=== PATIENT | male | born 2000 | race Caucasian/White ===

== ENCOUNTER 2020-10-09 18:16 | Emergency (ER) | payer BC, SELFPAY ==
[2020-10-09 18:17] VITALS: BP 131/90; PULSE 80; RESP 18; TEMP 36.9; O2SAT 99; BMI 24.6
--- NOTE | 2020-10-09 18:57 | HMH.EDUTC ---
[facility] Disposition Clinical Impression: Viral upper respiratory illness Disposition: Home, Self-Care Condition on Discharge: Good Instructions: Sore Throat, DI for COVID-19 (Suspected or Confirmed ), Coronavirus Disease 2019, Preventing the Spread of Coronavirus Discharge Instructions Additional Instructions: *Monitor Temp, Over the counter Motrin or Tylenol as directed/as needed Tylenol every 4 hours and Motrin every 6 hours (as long as your family doctor has told you that you can take it) for fever or pain. and straight to ER if unable to lower temp less than 101.0 after medication given *Warm salt water gargles may help to soothe the throat *Throat Lozenges *Warm fluids like tea with honey may help to soothe the throat *Sleep elevated *Humidifier/Vaporizer Your throat swab was sent for culture. Those results are typically sent to your primary care. Be sure to follow up in 2-3 days with your family doctor/primary care physician if no improvement so they can review those result and treat if necessary. If you don?t have a primary care doctor, I recommend you get one but in the mean time, you will have to return to a walk in clinic Follow up IMMEDIATELY for new or worsening symptoms or no Noticeable improvement over the next 48-72 hours. 911 for difficulty breathing or swallowing You were tested for today for COVID19 your test result should be back in the next 24-48 hours, you may call to the [facility] to see if your test results are back in the next 48 hours [phone] [facility] hours are 9am-9pm You was given a handout with instructions for Self Quarantine and Self isolation for while you wait on test results and what to do if they are positive If you are positive the Health Dept will be contacting you also Referrals: PCP,No [Primary Care Provider] - As needed Forms: Work/School Release Time of Disposition: 19:12 Medical Decision Making - Uvaldo Inquiry Pt receiving controlled substance: No Uvaldo was queried for this patient: No Vital Signs: 10/09/20 18:17 Temperature 98.4 F Temperature Source Oral Pulse Rate [Right] 80 Respiratory Rate 18 Blood Pressure [Right Arm] 131/90 Blood Pressure Mean [Right Arm] 103 02 Sat by Pulse Oximetry 99 Oxygen Delivery Method Room Air - Lab Data Lab Results 10/09/20 18:57: Strep Scn Rapid Clinic Negative Orders (Tests/Meds): ORDERS Category Date Time Status Covid-19 Nasal PCR ([facility]) Routine Lab 10/09/20 18:24 Received Strep Screen Confirmation Stat Micro 10/09/20 18:57 Received [facility] UTC HPI - General Stated complaint: covid test Time Seen by Provider: 10/09/20 18:57 Mode of Arrival: Family Vehicle Source of Information: Patient Limitations: No Limitations Description of Symptoms (Recalled from Triage Doc. by RN): PT C/O HEADACHE, SORE THROAT AND GENERAL MALAISE. PT REPORTS PT WANTS A COVID TEST FOR WORK. HEENT Symptoms (Recalled from RN notes): Yes Resp Symptoms (Recalled from RN notes): No Skin Symptoms (Recalled from RN notes): No MS Symptoms (Recalled from RN notes): No Functional Status (Recalled from RN notes): NA - History of Present Illness Provider Complaint: Patient states that he has been having headache, sore throat and over all not feeling well for a couple of days States that he was worried that he may have COVID or strep throat States that he wanted to get tested Unsure if he has been around anyone or not that may be positive - Related Data Allergies Allergy/AdvReac Type Severity Reaction Status Date / Time No Known Allergies Allergy Verified 03/12/19 12:01 - Worker's Comp Is this a Worker's Comp case?: No Is this an H Worker's Comp?: No Is this a [place] Worker's Comp?: No [facility] History - Hepatitis A Screen Drug use history?: No High risk sexual behaviors?: No History of sexually transmitted infection?: No Currently employed?: No Childcare worker?: No Do you have indoor plumbing?: Yes Do you have electricity?: Yes Attestation
[2020-10-09 19:09] LABS: UTC Strep Screen (Rapid) Negative (Negative)
[2020-10-09 19:30] VITALS: BP 132/71; PULSE 81; RESP 18; TEMP 36.8; O2SAT 99
== END 2020-10-09 19:16 | disposition home or self-care (01) ==
LOC: UTC 18:23 → ER 18:52 → UTC 18:52
PROVIDERS: Emergency Provider Nurse Practitioner
DX: Z20.822 Contact with and (suspected) exposure to COVID-19 (principal); J06.9 Acute upper respiratory infection, unspecified
CPT/HCPCS: 87880; 99202; G0463; U0003

== ENCOUNTER 2020-12-23 13:43 | Emergency (ER) | payer BC, OTHER, SELFPAY ==
--- NOTE | 2020-12-23 13:39 | ECG_ITS ---
APPROVED REPORT Exam: Resting ECG HR:66 bpm ECG Measurements Heart Rate 66 AXES MO 126 P 36 QRSd 90 QRS 93 QT 412 T 65 QTc 431 Conclusion Normal sinus rhythm Rightward axis Borderline ECG Electronically signed by : Charlie Tabares, 12/23/2020 17:42:26
[2020-12-23 13:43] VITALS: BP 126/73; PULSE 62; RESP 16; TEMP 36.7; O2SAT 99; BMI 24.2
[2020-12-23 14:00] VITALS: BP 118/72; PULSE 65; RESP 11; O2SAT 98
--- NOTE | 2020-12-23 14:00 | XR_ITS ---
PROCEDURE: XR CHEST PORTABLE CLINICAL HISTORY: CHEST PAIN, SOA COMPARISON: No exams were available for comparison FINDINGS: The cardiomediastinal silhouette and pulmonary vascularity are within normal limits. The lungs are clear without infiltrates, suspicious nodules, or pleural effusions. There is mild thoracic curvature convex left IMPRESSION: No acute findings. Dictated by: Rehan Beaulieu MD 12/23/2020 14:29 Rehan Beaulieu MD in [place] 12/23/2020 14:29
[2020-12-23 14:07] LABS: Chloride 102 mmol/L (98-107); Sodium 141 mmol/L (136-145)
[2020-12-23 14:08] LABS: Potassium 3.9 mmoL/L (3.5-5.1)
[2020-12-23 14:10] LABS: Blood Urea Nitrogen 8 mg/dl (9-20); Creatinine Clearance Estimated 124 mL/min (50-200); Estimated Glomerular Filt Rate 106 ml/min (>60); GFR (African American) 128 ML/MIN (>60)
[2020-12-23 14:11] LABS: Anion Gap 11.9 mEq/L (5-15); Calcium 9.7 mg/dl (8.4-10.2); Carbon Dioxide 31 mmol/L (22.0-30.0); Glucose 100 mg/dl (74-100)
[2020-12-23 14:21] LABS: Basophils # 0.1 K/mm3 (0-0.2); Basophils % 1.2 % (0.1-2.0); Eosinophils # 0.1 K/mm3 (0.0-0.4); Eosinophils % 1.7 % (0.1-12.0); Hematocrit 43.2 % (42.0-52.0); Hemoglobin 15.6 g/dL (14.1-18.0); Lymphocytes % 31.5 % (10-50); Mean Corpuscular HGB Conc 36.1 g/dL (31.8-35.4); Mean Corpuscular Hemoglobin 31.4 pg (27.0-31.2); Mean Corpuscular Volume 86.9 fl (80-94); Mean Platelet Volume 7.2 fl (7.4-10.4); Monocytes # 0.4 K/mm3 (0.1-1.0); Monocytes % 5.5 % (1.7-9.3); Neutrophils # 3.8 K/mm3 (1.8-7.8); Platelet Count 277 K/mm3 (142-424); Red Blood Count 4.97 M/mm3 (4.60-6.20); Red Cell Distribution Width 12.8 % (11.5-17.5); White Blood Count 6.4 K/mm3 (4.8-10.8)
[2020-12-23 14:26] LABS: Troponin I < 0.01 ng/ml (0.00-0.034)
--- NOTE | 2020-12-23 14:27 | HMH.EDGENADL ---
ED Disposition Clinical Impression: Chest wall pain Disposition: Home, Self-Care Condition on Discharge: Good Instructions: DI for Atypical Chest Pain Additional Instructions: [id number] ibuprofen for pain, 600 mg every 6-8 hours. Additional instructions for CHEST PAIN: See your physician as soon as possible for further evaluation. Return immediately if worsening chest pain, vomiting, shortness of breath, fever, coughing of blood. Prescriptions: Ibuprofen [Ibuprofen 600mg Tab] 600 mg PO Q6HP PRN #20 tab PRN Reason: Moderate Pain Referrals: Natalee Rhodes [Primary Care Provider] - - Critical Care Critical Care Time: No Attestation: On 12/23/20, the high probability of a clinically significant, sudden or life threatening deterioration of the following system(s) required my full and direct attention, intervention and personal management. The time I documented below is in addition to time spent performing reported procedures but includes the following listed in this critical care notation. Medical Decision Making - Uvaldo Inquiry Pt receiving controlled substance: No Vital Signs: 12/23/20 13:43 12/23/20 14:00 12/23/20 14:30 Temperature 98.1 F Temperature Source Oral Pulse Rate 65 61 Pulse Rate [Right] 62 Respiratory Rate 16 11 L 18 Blood Pressure 118/72 126/77 Blood Pressure [Right Arm] 126/73 Blood Pressure Mean 83 90 Blood Pressure Mean [Right Arm] 90 02 Sat by Pulse Oximetry 99 98 97 Oxygen Delivery Method Room Air - Lab Data Lab Results 12/23/20 13:47: WBC 6.4, RBC 4.97, Hgb 15.6, Hct 43.2, MCV 86.9, MCH 31.4 H, MCHC 36.1 H, RDW 12.8, Plt Count 277, MPV 7.2 L, Neut % (Auto) 60.0, Lymph % (Auto) 31.5, [place] % (Auto) 5.5, Eos % (Auto) 1.7, Baso % (Auto) 1.2, Neut # (Auto) 3.8, Lymph # (Auto) 2.0, [place] # (Auto) 0.4, Eos # (Auto) 0.1, Baso # (Auto) 0.1 12/23/20 13:47: Sodium 141, Potassium 3.9, Chloride 102, Carbon Dioxide 31 H, Anion Gap 11.9, BUN 8 L, Creatinine 0.90, Estimated Creat Clear 124, Estimated GFR 106, Est GFR ( Amer) 128, Glucose 100, Calcium 9.7, Troponin I < 0.01 Result diagrams: 12/23/20 13:47 12/23/20 13:47 Orders (Tests/Meds): ED MEDICATIONS Generic Name Dose Route Start Last Admin Trade Name Freq PRN Reason Stop Dose Admin Ketorolac Tromethamine 30 mg 12/23/20 14:38 Ketorolac 30mg/Ml Vial IV 12/23/20 14:39 ONCE ONE ORDERS Category Date Time Status Troponin I Q3H Lab 12/23/20 17:00 Ordered Troponin I Q3H Lab 12/23/20 20:00 Ordered - Radiology Data #1 Image(s): Chest Image Reviewed: Yes I reviewed the patient's radiology image, Yes I have reviewed radiologist's interpretation PROCEDURE: XR CHEST PORTABLE CLINICAL HISTORY: CHEST PAIN, SOA COMPARISON: No exams were available for comparison FINDINGS: The cardiomediastinal silhouette and pulmonary vascularity are within normal limits. The lungs are clear without infiltrates, suspicious nodules, or pleural effusions. There is mild thoracic curvature convex left IMPRESSION: No acute findings. Dictated by: Rehan Beaulieu MD 12/23/2020 14:29 Rehan Beaulieu MD in [place] 12/23/2020 14:29 - ECG Data Tracing #1 EKG interpreted by Mikey Suero MD: Rhythm: sinus Rate: 66 [place]: Rightward Ectopy: none Conduction: normal ST Segment Changes: none T Wave Changes: none Q Waves: none No evidence of acute ischemia or injury Medical Decision Narrative: PULMONARY EMBOLISM RULE-OUT CRITERIA: 1. Age > 49? No 2. Pulse greater than 99/min? No 3. Room air pulse ox <95%? No 4. Hemoptysis? No 5. On estrogen? No 6. Prior diagnosis of DVT or PE? No 7. Surgery or trauma requiring endotracheal intubation or hospitalization in past 4 wks? No 8. Unilateral leg swelling? No The patient is low risk and the PERC score is 0, indicating no further workup for pulmonary embolism is necessary. General Adult HPI - General Chief complaint
[2020-12-23 14:30] VITALS: BP 126/77; PULSE 61; RESP 18; O2SAT 97
[2020-12-23 14:57] VITALS: BP 126/77; PULSE 64; RESP 16; TEMP 36.7; O2SAT 98
== END 2020-12-23 14:57 | disposition home or self-care (01) ==
PROVIDERS: Emergency Provider Emergency Medicine; PCP Family Medicine
DX: R07.89 Other chest pain (principal); R42 Dizziness and giddiness; F17.290 Nicotine dependence, other tobacco product, uncomplicated
CPT/HCPCS: 71045; 80048; 84484; 85025; 93005; 96374; 99283

== ENCOUNTER 2021-07-08 13:04 | Emergency (ER) | payer BC, OTHER, SELFPAY ==
[2021-07-08 16:07] VITALS: BP 134/89; PULSE 97; RESP 18; TEMP 37.3; O2SAT 98; BMI 24.3
[2021-07-08 16:34] LABS: UTC Influenza A Antigen Negative (Negative)
[2021-07-08 16:35] LABS: UTC Influenza B Antigen Negative (Negative)
--- NOTE | 2021-07-08 16:41 | HMH.EDUTC ---
[facility] Disposition Clinical Impression: Viral syndrome, Exposure to COVID-19 virus Pharyngitis Qualifiers: Pharyngitis/tonsillitis etiology: unspecified etiology Qualified Code(s): J02.9 - Acute pharyngitis, unspecified Disposition: Home, Self-Care Condition on Discharge: Good Instructions: DI for Viral Syndrome, DI for COVID-19 (Suspected or Confirmed ), Preventing the Spread of Coronavirus Discharge Instructions Additional Instructions: Drink plenty of fluids. Take tylenol or ibuprofen for pain or fever. Take the medications as directed. Follow up with your regular doctor. GO TO THE ER FOR ANY WORSENING SYMPTOMS Quarantine until you know the results of your covid-19 test. Notify your school or workplace of your results and follow their instructions regarding return to work/school. Prescriptions: Brompheniramine/Pseudoephed/Dm [Bromfed Dm Cough Syrup] 5 ml PO Q6HP PRN #240 ml PRN Reason: Cough Transmission Status: Received by [id number] Azithromycin [Z-See 250mg Tab*] 250 mg PO UD DOSE PK #6 tab Transmission Status: Received by [id number] Referrals: Provider,Referral, [Referring] - Forms: Work/School Release Time of Disposition: 16:55 Medical Decision Making - Medical Records Medical records reviewed: No: I reviewed the patient's medical records. - [place] Inquiry Pt receiving controlled substance: No Vital Signs: 07/08/21 16:07 07/08/21 16:56 Temperature 99.1 F 99.1 F Temperature Source Oral Pulse Rate 97 H Pulse Rate [Left] 97 H Respiratory Rate 18 18 Blood Pressure 134/89 Blood Pressure [Right Arm] 134/89 Blood Pressure Mean [Right Arm] 104 02 Sat by Pulse Oximetry 98 - Lab Data Lab results reviewed: Yes: I reviewed the patient's lab results. Lab Results 07/08/21 16:12: Group A Strep Rapid Negative 07/08/21 16:12: Influenza Type A Ag Negative, Influenza Type B Ag Negative Orders (Tests/Meds): ORDERS Category Date Time Status Strep Screen Confirmation Stat Micro 07/08/21 16:12 Received [facility] HPI - General Stated complaint: chills, diarrhea, dizziness, [place] Time Seen by Provider: 07/08/21 16:43 Mode of Arrival: Ambulatory Source of Information: Patient Limitations: No Limitations Description of Symptoms (Recalled from Triage Doc. by RN): pt c/o sweats/chills, nausea and a sore throat since last night. HEENT Symptoms (Recalled from RN notes): Yes Resp Symptoms (Recalled from RN notes): No Skin Symptoms (Recalled from RN notes): No MS Symptoms (Recalled from RN notes): No Functional Status (Recalled from RN notes): wnl - History of Present Illness Provider Complaint: He states that for the past 3 days he has had chest congestion, sore throat, sinus congestion and body aches. HE denies any fever, but he has been having chills. - Related Data Previous Rx's Medication Instructions Recorded Ibuprofen [Ibuprofen 600mg Tab] 600 mg PO Q6HP PRN #20 tab 12/23/20 Azithromycin [Z-See 250mg Tab*] 250 mg PO UD DOSE PK #6 tab 07/08/21 Brompheniramine/Pseudoephed/Dm 5 ml PO Q6HP PRN #240 ml 07/08/21 [Bromfed Dm Cough Syrup] Allergies Allergy/AdvReac Type Severity Reaction Status Date / Time No Known Allergies Allergy Verified 03/12/19 12:01 - Worker's Comp Is this a Worker's Comp case?: No [facility] History - Hepatitis A Screen Drug use history?: No High risk sexual behaviors?: No History of sexually transmitted infection?: No Currently employed?: 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 I have reviewed the patient's past medical history: Yes ROS Obtained: Yes All systems reviewed & no additional complaints - Constitutional Constitutional: Reports as per HPI - Eyes Eyes: Denies eye discharge - ENT Ears, Nose, Mouth, and Throat: Reports as per HPI - Cardiovascular
[2021-07-08 16:48] LABS: Strep Scrn Group A (Rapid) Negative (Negative)
[2021-07-08 16:56] VITALS: BP 134/89; PULSE 97; RESP 18; TEMP 37.3
== END 2021-07-08 16:59 | disposition home or self-care (01) ==
PROVIDERS: Emergency Provider Nurse Practitioner Family; PCP Family Medicine
DX: U07.1 COVID-19 (principal)
CPT/HCPCS: 87430; 87804; 99202; C9803; G0463; U0003; U0005